=== PATIENT | female | born 1975 | race Caucasian/White ===

== ENCOUNTER 2023-08-25 08:34 | Emergency (ER) | payer BC, SELFPAY ==
[2023-08-25 08:34] VITALS: BP 157/84; PULSE 75; RESP 16; TEMP 36.9; O2SAT 99
[2023-08-25 09:09] VITALS: BMI 44.9
[2023-08-25 09:18] LABS: Basophils % 0.5 %; Eosinophils % 0.5 %; Hematocrit 42.7 % (36-47); Lymphocytes % 23.5 %; Mean Corpuscular HGB Conc 32.8 g/dL (30-55); Mean Corpuscular Hemoglobin 28.3 pg (27-33); Mean Corpuscular Volume 86.4 fl (85-98); Mean Platelet Volume 11.8 fL (7.4-10.4); Monocytes # 0.4 10^3/uL (0.2-0.9); Neutrophils # 6.04 10^3/uL (1.8-7.7); Neutrophils % 70.2 %; Nucleated Red Blood Cells % 0 %; Platelet Count 195 10^3/cmm (157-399); Red Blood Count 4.94 10^6/uL (3.85-5.65); Red Cell Distribution Width 13.3 % (12.1-15.1)
[2023-08-25 09:30] LABS: Alanine Aminotransferase 12 U/L (0-33); Albumin Level 4.6 g/dL (3.5-5.2); Alkaline Phosphatase 55 U/L (35-105); Aspartate Amino Transferase 15 U/L (0-32); Blood Urea Nitrogen 14 mg/dL (6-20); Calcium 9.9 mg/dL (8.5-10.5); Carbon Dioxide 24 mmol/L (22-29); Chloride 104 mmol/L (98-107); Creatinine Clr Calc Pharmacy 100.3905; Globulin 2.9 g/dL (1.3-4.6); Glomerular Filtration Rate 66.8 mL/min (90-130); Glucose 109 mg/dL (65-115); Lipase 34 U/L (13-60); Osmolality Calculated 287 mOsm/kg (285-295); Sodium 138 mmol/L (136-145); Total Bilirubin 0.7 mg/dL (0.15-1.2); Total Protein 7.5 g/dL (6.6-8.7)
--- NOTE | 2023-08-25 10:52 | ECG_ITS ---
[facility] Test Date: 2023-08-25 Pat Name: Rosana Velasco Department: Room: Gender: Female Dryland Farmer: : 1975 Requested By: Roberto Carlos Ontiveros Order Number: [id number] Hoang MD: Elizabeth Savage M.D. Measurements Intervals [place] Rate: 64 P: 30 ND: 137 QRS: 27 QRSD: 89 T: -2 QT: 385 QTc: 400 Interpretive Statements SINUS RHYTHM No previous ECG available for comparison Electronically Signed On 08-25-2023 12:42:00 CDT by Elizabeth Savage M.D. [id number]
--- NOTE | 2023-08-25 11:37 | US_ITS ---
WS: [id number] RIGHT UPPER QUADRANT ULTRASOUND HISTORY: ruq pain COMPARISON: None available. Liver: 17.3 cm in length. Liver is mildly enlarged. Coarse echotexture and hepatic steatosis. There i s a complex low-attenuation mass in the RIGHT lobe of the liver measuring 3.8 x 3.3 x 4.1 cm. There a re low-level echoes present. This may be a cyst but cannot be clarified by ultrasound. No additional abnormalities. Portal Vein: Normal hepatopetal flow with monophasic waveform. Gallbladder: Small stones are noted at the gallbladder neck. No pericholecystic fluid. No gallbladder wall thickening. CBD: 0.4 cm Pancreas: Tail is obscured by bowel gas. Right kidney: 9.2 cm in length. Normal size and echogenicity. No hydronephrosis or mass. Aorta and IVC: Unremarkable abdominal aorta and IVC. No ascites. IMPRESSION: 1. Cholelithiasis. Small stones are noted at the gallbladder neck. No evidence for acute cholecystiti s or bile duct dilatation. 2. Hepatic steatosis and hepatomegaly, mild. 3. Hypoechoic mass with low-level echoes in the posterior RIGHT lobe of the liver measures 3.8 x 3.3 x 4.1 cm. This is probably a cyst but needs to be further evaluated recommend follow-up imaging. This may include MRI of the liver or CT to evaluate for mass.
--- NOTE | 2023-08-25 11:38 | ED_ITS ---
HPI - Abdominal Pain General: Chief Complaint: Abdominal Pain Stated Complaint: right side abd pain, back pain Time Seen by Provider: 08/25/23 10:13 Source: patient Mode of arrival: ambulatory Limitations: no limitations History of Present Illness: 48-year-old female states she woke up this morning at 3 AM with right-sided flank along with right upper quadrant abdominal pain. States she had 1 episode of nausea vomiting states pain improved after she vomits currently 4 out of 10 she has no history of kidney stones she states she still has her gallbladder as well. She denies any fevers denies any worsening proving factors Associated Symptoms: Reports nausea and vomiting; Denies chills, diarrhea and fever(s) Review of Systems Const: Denies: fever(s), chills, body aches or change in appetite Eyes: Denies: blurry vision or eye discomfort ENMT: Denies: throat pain or dental pain Card: Denies: chest pain Resp: Denies: dyspnea GI: Reports: abdominal pain, nausea and vomiting; Denies: diarrhea Musc: Denies: neck pain or back pain Skin/Breast: Denies: rash Neuro: Denies: headache(s) Physical Exam Const: COMMON NORMALS: no acute distress, patient oriented x3 and healthy appearing HENMT: COMMON NORMALS: normocephalic and atraumatic HEAD & SCALP: normocephalic and atraumatic Eye: COMMON NORMALS: Equal, round and reactive pupils present and EOMs intact bilaterally PUPIL: Yes Equal, round and reactive pupils present Neck/C-Spine: COMMON NORMALS: full ROM and supple Chest: COMMONS NORMALS: normal inspection of the chest and normal palpation of entire chest wall Resp: COMMON NORMALS: normal respiratory effort, No retractions, No use of accessory muscles and clear to auscultation bilaterally AUSCULTATION: clear to auscultation bilaterally Cardio: COMMON NORMALS: regular rate, regular rhythm and No murmurs present (Cardio) RATE: regular rate RHYTHM: regular rhythm GI: COMMON NORMALS: Normal to inspection, nondistended, normoactive bowel sounds present, Soft to palpation and no masses PALPATION: Yes Soft to palpation and Yes Tenderness to palpation present (GI) Details: RUQ Extremity: COMMON NORMALS: normal to inspection and full ROM Neuro: COMMON NORMALS: patient oriented x3, moves all extremities and no focal motor deficits Psych: COMMON NORMALS: mental status grossly normal, Normal thought process present and cooperative THOUGHT PROCESS: Normal thought process present Skin: COMMON NORMALS: no rashes or lesions noted and no wounds GENERAL SKIN EXAM: no rashes or lesions noted Course Vital Signs: Vital signs: Vital Signs Temperature 98.4 F 08/25/23 08:34 Pulse Rate 75 08/25/23 08:34 Respiratory Rate 16 08/25/23 08:34 Blood Pressure 157/84 08/25/23 08:34 Pulse Oximetry 99 08/25/23 08:34 Oxygen Delivery Me thod Room Air 08/25/23 08:34 MDM - Abdominal Pain Medical Decision Making Patient presents with right upper quadrant abdominal pain she does have gallstones could be causing her pain she has no signs of cholecystitis her exam at this time is benign. She has no signs of kidney stone no blood in her urine we will prescribe her hydrocodone and Zofran she is eat a bland diet and follow- up with surgery she is return if worsening she understands agrees to plan. Medical Records I reviewed the patient's medical records. Lab Data I reviewed the patient's lab results. 08/25/23 09:06 08/25/23 09:06 Labs/Radiology: Laboratory Results WBC 8.60 10^3/uL (3.29-11.43) 08/25/23 09:06 RBC 4.94 10^6/uL (3.85-5.65) 08/25/23 09:06 Hgb 14.00 g/dL (11.27-16.99) 08/25/23 09:06 Hct 42.7 % (36-47) 08/25/23 09:06 MCV 86.4 fl (85-98) 08/25/23 09:06 MCH 28.3 pg (27-33) 08/25/23 09:06 MCHC 32.8 g/dL (30-55) 08/25/23 09:06 RDW 13.3 % (12.1-15.1) 08/25/23 09:06 Plt Count 195 10^3/cmm (157-399) 08/25/23 09:06 MPV 11.8 fL (7.4-10.4) H 08/25/23 09:06 Neut % (Auto) 70.2 % 08/25/23 09:06 Lymph % (Auto) 23.5 % 08/25/23 09:06 [place] % (Auto) 5.0 % 08/25/23 09:06 Eos % (Auto) 0.5 % 08/25/23 09:06 Baso % (Auto) 0.5 % 08/25/23 09:06 Neut # (Auto) 6.04 10^3/uL (1.8-7.7) 08/25/23 09:06 Lymph # (Auto) 2.0 10^3/uL (0.8-4.8) 08/25/23 09:06 [place] # (Auto) 0.4 10^3/uL (0.2-0.9) 08/25/23 09:06 Eos # (Auto) 0.0 10^3/uL (0.0-0.8) 08/25/23 09:06 Baso # (Auto) 0.0 10^3/uL (0.0-0.1) 08/25/23 09:06 Nucleated RBC % (auto) 0 % 08/25/23 09:06 Nucleated RBCs # 0.0 /100WBC 08/25/23 09:06 Sodium 138 mmol/L (136-145) 08/25/23 09:06 Potassium 4.0 mmol/L (3.5-5.1) 08/25/23 09:06 Chloride 104 mmol/L (98-107) 08/25/23 09:06 Carbon Dioxide 24 mmol/L (22-29) 08/25/23 09:06 Anion Gap 14.0 (5-19) 08/25/23 09:06 BUN 14 mg/dL (6-20) 08/25/23 09:06 Creatinine 0.9 mg/dL (0.5-0.9) 08/25/23 09:06 GFR Calculation 66.8 mL/min (90-130) L 08/25/23 09:06 Glucose 109 mg/dL (65-115) 08/25/23 09:06 Calculated Osmolality 287 mOsm/kg (285-295) 08/25/23 09:06 Calcium 9.9 mg/dL (8.5-10.5) 08/25/23 09:06 Total Bilirubin 0.7 mg/dL (0.15-1.2) 08/25/23 09:06 AST 15 U/L (0-32) 08/25/23 09:06 ALT 12 U/L (0-33) 08/25/23 09:06 Alkaline Phosphatase 55 U/L (35-105) 08/25/23 09:06 Total Protein 7.5 g/dL (6.6-8.7) 08/25/23 09:06 Albumin 4.6 g/dL (3.5-5.2) 08/25/23 09:06 Globulin 2.9 g/dL (1.3-4.6) 08/25/23 09:06 Lipase 34 U/L (13-60) 08/25/23 09:06 Urine Color Yellow (Yellow) 08/25/23 11:50 Urine Appearance Sl hazy (CLEAR) A 08/25/23 11:50 Urine pH 6 (5-7) 08/25/23 11:50 Ur Specific [place] 1.020 (1.005-1.030) 08/25/23 11:50 Urine Protein Neg (Negative) 08/25/23 11:50 Urine Glucose (UA) Norm (Normal) 08/25/23 11:50 Urine Ketones Negative (Negative) 08/25/23 11:50 Urine Blood Neg (Negative) 08/25/23 11:50 Urine Nitrate Negative (Negative) 08/25/23 11:50 Urine Bilirubin Neg (Negative) 08/25/23 11:50 Urine Urobilinogen Norm mg/dL (Negative) 08/25/23 11:50 Ur Leukocyte Esterase Negative (Negative) 08/25/23 11:50 Urine RBC 0-4 /hpf (0-2) H 08/25/23 11:50 Urine WBC 0-4 /hpf (0-5) H 08/25/23 11:50 Ur Squamous Epith Cells 5-10 /hpf (0-5) H 08/25/23 11:50 Amorphous Sediment Not Reportable 08/25/23 11:50 Urine Bacteria Trace /hpf (NONE) 08/25/23 11:50 Hyaline Casts Rare /lpf 08/25/23 11:50 Urine Mucus 2+ /hpf 08/25/23 11:50 All radiology interpretation(s) finalized by discharge Discharge Plan Discharge Patient Disposition: Home Clinical Impression: Abdominal pain, Gallstones Condition: Stable Prescriptions: New hydrocodone-acetaminophen 5-325 mg tablet 1 tab PO Q6H PRN (Reason: pain) Qty: 14 0RF ondansetron 4 mg tablet,disintegrating 4 mg PO Q6H PRN (Reason: nausea and vomiting) Qty: 14 0RF No Action cetirizine 10 mg Tablet 10 mg PO QAM omeprazole 40 mg capsule,delayed release(DR/EC) 40 mg PO DAILY Aspir-81 81 mg Tablet,Delayed Release (Dr/Ec) 81 mg PO QAM Vitamin D3 50 mcg (2,000 unit) Capsule 50 mcg PO QAM Ozempic 0.25 mg or 0.5 mg (2 mg/3 mL) Pen Injector 2 mg SUBCUT Q7D Discharge Orders: Discharge ED (Routine); Ordered 08/25/23 Ordered By: Yusef Pires Referrals: Annie Thayer FNP [Primary Care Provider] - Kulwinder Tukcer DO [Physician] - 1-3 days Discharge Diet: Advance as tolerated Discharge Activity: Resume usual activity Patient Instructions: Abdominal Pain (ED), Opioid Safety Coding Level of Care Code ED [employer]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
[2023-08-25] MEDS: sodium chloride 0.9% 1,000 ML 999 ML IV (12:06)
[2023-08-25] MEDS: ondansetron 2 mg/ML SDV 2 mL 4 MG IVP (12:06)
[2023-08-25 12:19] LABS: Add Urine Microscopic? YES; Bilirubin Urine Neg (Negative); Blood Urine Neg (Negative); Glucose Urine UA Norm (Normal); Ketones Urine Negative (Negative); Leukocyte Esterase Urine Negative (Negative); Nitrate Urine Negative (Negative); Protein Urine Neg (Negative); Urine Appearance SL Hazy (CLEAR); Urine Color Yellow (Yellow); Urobilinogen Urine Norm (Negative); pH Urine 6 (5-7)
[2023-08-25 12:25] LABS: Add Urine Culture? No; Bacteria Urine TRACE /hpf; Hyaline Casts Urine RARE /lpf; Mucus Urine 2+ /hpf; RBC Urine 0-4 /hpf (0-2); WBC Urine 0-4 /hpf (0-5)
--- NOTE | 2023-08-25 14:13 | DCPLANNER ---
Referral was sent to General surgery on 08/25 at 14:15pm.
== END 2023-08-25 12:57 | disposition home or self-care (01) ==
PROVIDERS: Family Medicine; Emergency Provider Emergency Medicine; PCP Nurse Practitioner Family
DX: R10.11 Right upper quadrant pain (principal); K80.20 Calculus of gallbladder without cholecystitis without obstruction; Z79.82 Long term (current) use of aspirin
CPT/HCPCS: 36415; 76705; 80053; 81001; 83690; 85025; 93005; 96361; 96374; 99285; J2405; J7030

== ENCOUNTER 2023-09-11 05:39 | Day surgery (SDC) | payer BC, SELFPAY ==
[2023-09-11] VITALS (10 sets, daily range): BP systolic 101–141; BP diastolic 48–80; PULSE 49–78; RESP 16–18; TEMP 36.1–36.4; O2SAT 92–99; BMI 44.9
[2023-09-11] MEDS: sodium chloride 0.9% 1,000 ML 30 ML IV (06:31)
[2023-09-11] MEDS: scopolamine 1.5 Patch 1 PATCH TRANSDERMA (06:32)
--- NOTE | 2023-09-11 06:33 | ANES.PREANE2 ---
Pre-Anesthetic Assessment Height/Weight: Height 1.65 m Weight 122.47 kg Temp Pulse Resp BP Pulse Ox O2 Del Method 97.3 F L 69 18 141/79 99 Room Air 09/11/23 06:05 09/11/23 06:05 09/11/23 06:05 09/11/23 06:05 09/11/23 06:05 09/11/23 06:06 Operation Date: 09/11/23 07:00 Proposed Procedures p 45901 lap chris K80.20(Not Applicable) - Kulwinder Tucker DO Familial anesthetic complications: None Was Beta Miya taken within 24 hours: N/A Was Clonidine taken within 24 hours: N/A Last intake: Intake Last Liquid Date 09/10/23 Last Liquid Time 22:00 Last Solid Date 09/10/23 Last Solid Time 18:30 Social No alcohol and No tobacco Exam alert, oriented x 3, clear to auscultation bilaterally and regular rate & rhythm Airway Submandibular: within normal limits Cervical ROM: within normal limits Mallampati: Class II Dentition: full History/ROS No significant history except as noted Pulmonary None reported CV/HEM None reported None reported Hepatic None reported GI None reported Metabolic Diabetes Mellitus and Morbid Obesity [facility] [place] None reported Neuropsych None reported Anesthetic Plan ASA status: 2 Anesthesia: General Risk of > 500 ml blood loss (7ml/kg in children): No Medications/Allergies Home Medications Medication Instructions Recorded Confirmed Last Taken Type aspirin 81 mg tablet,delayed 81 mg PO QAM 08/25/23 09/10/23 09/10/23 History release cetirizine 10 mg tablet 10 mg PO QAM 08/25/23 09/10/23 09/10/23 History cholecalciferol (vitamin D3) 50 50 mcg PO QAM 08/25/23 09/10/23 09/10/23 History mcg (2,000 unit) capsule (Vitamin D3) hydrocodone 5 mg-acetaminophen 325 1 tab PO Q6H PRN pain #14 tabs 08/25/23 09/10/23 Unknown Rx mg tablet omeprazole 40 mg capsule,delayed 40 mg PO DAILY 08/25/23 09/10/23 09/10/23 History release ondansetron 4 mg disintegrating 4 mg PO Q6H PRN nausea and 08/25/23 09/10/23 Unknown Rx tablet vomiting #14 tabs semaglutide 0.25 mg or 0.5 mg (2 2 mg SUBCUT Q7D 08/25/23 09/10/23 08/30/23 History mg/3 mL) subcutaneous pen injector (Ozempic) Allergies Allergy/AdvReac Type Severity Reaction Status Date / Time No Known Allergies Allergy Verified 09/02/23 09:11 Current Medications Generic Name Dose Route Start Last Admin Trade Name Freq PRN Reason Stop Dose Admin Sodium Chloride 1,000 mls @ 30 mls/hr 09/11/23 06:00 09/11/23 06:31 Sodium Chloride 0.9% IV 09/12/23 05:59 30 mls/hr .Q24H BONI Administration PFSH Anesthesia Surgical History (Updated 09/02/23 @ 09:39 by Kulwinder Tucker DO) History of hernia repair History of hysterectomy Family History Other Cancer Social History Smoking and tobacco/nicotine status: never used tobacco/nicotine Alcohol intake: current Alcohol intake frequency: holidays/special occasions only Data Anesthesia Cardiac Studies: No Data to Display
--- NOTE | 2023-09-11 06:56 | W.PM.OPSUD ---
Surgery/Procedure H&P Update DATE OF PROCEDURE: September 11, 2023 DATE H&P PERFORMED: 09/02/23 H&P UPDATE INFORMATION: I have reviewed H&P completed within last 30 days, I have examined patient prior to procedure and No changes to prior documentation PLANNED PROCEDURE: Operation Date: 09/11/23 07:00 Proposed Procedures p 72104 lap chris K80.20(Not Applicable) - Kulwinder Tucker DO
[2023-09-11] MEDS: ceFAZolin 2,000 MG in sodium chloride 0.9% (plus) 50 ML 100 MG IV (07:00)
[2023-09-11] MEDS: lidocaine-epi 2% 20 mL INJ 10 ML INJECTION (07:22)
--- NOTE | 2023-09-11 07:38 | P.OP_ITS ---
Operative Report Date of procedure: September 11, 2023 Surgeon: Kulwinder Tucker DO Brief History: This is a very pleasant 48-year-old female who was diagnosed with symptomatic cholelithiasis. Laparoscopic cholecystectomy was indicated. The risk and benefits were explained and documented. Procedure: Preoperative diagnosis: Symptomatic cholelithiasis Postoperative diagnosis: Same Procedure performed: Laparoscopic cholecystectomy Surgeon: Dr. Kulwinder Tucker DO Estimated blood loss: 5 mL Specimens: Gallbladder to pathology Complications: None apparent Description of procedure: Patient was wheeled into the operative room and placed on the OR table in a supine position. Abdomen was inspected prepped and draped in usual sterile fashion. Time-out was performed and all present were in agreement. A 15 blade scalp was used to make a stab incision in the left upper quadrant and intra- abdominal insufflation was achieved using a Veress needle. After localizing the tissue incisions were made and a 5 millimeter trocar was placed into the umbilicus as well as 2 in the right upper quadrant. A 12 millimeter trocar was placed in the epigastrium. Gallbladder was grasped and elevated. The triangle of Calot was carefully dissected using blunt dissection and electrocautery until the triangle of Calot clearly identified. The cystic duct was clipped proximally and double clipped distally. The duct was then ligated proximally. The cystic artery was doubly clipped and ligated. The gallbladder was then removed from the liver bed using electrocautery. The gallbladder was removed from the abdomen using an Endo-Catch bag through the epigastric incision. The liver bed was inspected and no bleeding was seen. The abdomen was irrigated and suctioned. All ports removed. Skin was washed and dried. Incisions were closed with 4-0 Monocryl in a subcuticular interrupted fashion. Skin glue was applied. Patient tolerated the procedure well.
[2023-09-11] MEDS: HYDROmorphone 1 mg/mL INJ 1 mL 0.5 MG IVP (08:13)
[2023-09-11] MEDS: HYDROcodone-acetaminophen 10-325 mg Tablet 1 TAB PO (08:52)
--- NOTE | 2023-09-11 10:10 | ANE.PACU2 ---
Inpatient post-anesthesia follow up: Airway intact: Yes Vital signs: Temperature 97.6 F Pulse Rate 49 Respiratory Rate 16 Blood Pressure 113/69 Pulse Oximetry 98 Oxygen Delivery Me thod Room Air Oxygen Flow Rate 5 Fraction of Inspir ed Oxygen Hydration adequate: Yes Nausea and vomiting: No Pain level: 2 Mental status: Baseline
== END 2023-09-11 09:34 | disposition home or self-care (01) ==
PROVIDERS: PCP Nurse Practitioner Family; Visit Provider Surgery
PROC: 0FT44ZZ Resection of Gallbladder, Percutaneous Endoscopic Approach (ICD-10-PCS; CPT 47562; principal; 2023-09-11 07:00)
DX: K80.10 Calculus of gallbladder with chronic cholecystitis without obstruction (principal); E11.9 Type 2 diabetes mellitus without complications; E66.01 Morbid (severe) obesity due to excess calories; Z68.41 Body mass index [BMI] 40.0-44.9, adult; Z79.82 Long term (current) use of aspirin
CPT/HCPCS: 47562; 88304; J0690; J1100; J1170; J2250; J2405; J2704; J3010; J3490; J7030